=== PATIENT | male | born 1965 ===

== ENCOUNTER → 2024-07-26 17:26 | Outpatient (REF) | payer OTHER, SELFPAY | LOC: MRI 3T 17:26 | PROVIDERS: ATTENDING PHYSICIAN Specialist; FAMILY PHYSICIAN Family Medicine | DX: C61 Malignant neoplasm of prostate (principal) | CPT/HCPCS: 72197; A9575 ==

== ENCOUNTER 2024-08-23 07:01 | Outpatient (RCR) | payer OTHER, SELFPAY | END 2024-08-23 23:59 | disposition home or self-care (01) | LOC: RPT 07:01 | PROVIDERS: ATTENDING PHYSICIAN Specialist; FAMILY PHYSICIAN Family Medicine | DX: C61 Malignant neoplasm of prostate (principal); Z73.6 Limitation of activities due to disability; Z85.038 Personal history of other malignant neoplasm of large intestine; Z98.0 Intestinal bypass and anastomosis status | CPT/HCPCS: 97112; 97162; 97530 ==

== ENCOUNTER 2024-08-28 10:25 | Inpatient (IN) | payer OTHER, SELFPAY ==
[2024-08-21 08:57] LABS: Hematocrit 40.2 % (39.0-52.0); Hemoglobin 14.1 g/dL (13.0-18.0); Mean Corp Hgb Conc. 35.1 g/dL (33.0-37.0); Mean Corpuscular Hgb 30.7 pg (27.0-31.0); Mean Corpuscular Volume 87.4 fL (80.0-94.0); Mean Platelet Volume 9.4 fL (7.4-10.4); Platelet Count 318 10^3/uL (130-400); Red Cell Dist. Width 12.8 % (11.5-14.5); White Blood Cell Count 7.5 10^3/uL (4.8-10.8)
[2024-08-21 09:58] LABS: Blood Urea Nitrogen 25 mg/dl (9-20); Calcium 9.5 mg/dl (8.4-10.2); Carbon Dioxide 28 mmol/L (22-30); Chloride 106 mmol/L (98-107); Glucose 90 mg/dl (70-99); Potassium 4.8 mmol/L (3.5-5.1); Sodium 142 mmol/L (135-145); eGFR > 60.00
[2024-08-21 13:54] VITALS: BMI 32.7
[2024-08-28] VITALS (16 sets, daily range): BP systolic 119–158; BP diastolic 71–87; BMI 32.7
[2024-08-28] MEDS: NEBCIN 480 MG/100 ML ENEMA 1 BOTTLE RECTAL (08:48)
[2024-08-28] MEDS: NORMOSOL-R/PLASMALYTE-A 1000 IV ×2 (08:49→16:43)
--- NOTE | 2024-08-28 12:31 | W.IMMPOSTOP ---
Surgical Immed Post Op Note
-
Primary Surgeon: Sofia
Assisting Surgeon: Roberthner
Pre-op Diagnosis: Prostate cancer
Post-op Diagnosis: Same
Procedure Performed: Radical perineal prostatectomy, bladder neck reconstuction
Anesthesia Type: GET
Specimen / Cultures: prostate, perivesical soft tissue, bladder neck and urethral margins
Estimated Blood Loss: 100 ml
Complications: Rectal laceration: recognized and repaired
[2024-08-28] MEDS: TORADOL 15 MG IV ×2 (13:23→18:17)
[2024-08-28 13:27] LABS: Hematocrit 39.6 % (39.0-52.0); Hemoglobin 14.2 g/dL (13.0-18.0)
[2024-08-28] MEDS: DETROL LA 4 MG PO (13:28)
[2024-08-28 13:40] LABS: Blood Urea Nitrogen 15 mg/dl (9-20); Calcium 8.8 mg/dl (8.4-10.2); Carbon Dioxide 27 mmol/L (22-30); Chloride 107 mmol/L (98-107); Estimated Creatinine Clearance 107 ml/min; Glucose 163 mg/dl (70-99); Potassium 4.6 mmol/L (3.5-5.1); Sodium 140 mmol/L (135-145); eGFR > 60.00
[2024-08-28] MEDS: VALIUM INJECTION 5 MG IV ×2 (13:51→20:13)
[2024-08-28] MEDS: FLAGYL 500 MG 100 IV (15:07)
[2024-08-28] MEDS: DILAUDID 0.25 MG IV (15:16)
[2024-08-28] MEDS: ZESTRIL 20 MG PO (17:58)
[2024-08-28] MEDS: COLACE 100 MG PO (17:58)
--- NOTE | 2024-08-28 18:06 | PTCARENOTE ---
Pt arrived to [facility] s/p radical prostatectomy. Pt has aburto catheter with yellow output and IVF infusing. Dressing on perineum with scant sanguineous drainage and rahul drain. Admission questions answered. Pt oriented to room and call caraballo. Bed
locked and in lowest position. Care ongoing.
[2024-08-28] MEDS: POLYSPORIN/DOUBLE ANTIBIOTIC 1 APPLIC TOPICAL (20:12)
[2024-08-28] MEDS: XANAX 0.25 MG PO (23:25)
[2024-08-28] MEDS: TYLENOL 650 MG PO (23:25)
[2024-08-29] MEDS: NORMOSOL-R/PLASMALYTE-A 1000 IV ×2 (02:00→13:14)
[2024-08-29] MEDS: FLAGYL 500 MG 100 IV ×2 (02:20→13:14)
[2024-08-29] MEDS: TORADOL 15 MG IV ×4 (02:20→18:32)
[2024-08-29 03:05] VITALS: BP 133/64
[2024-08-29 07:12] LABS: Hematocrit 35.8 % (39.0-52.0); Hemoglobin 12.7 g/dL (13.0-18.0); Mean Corp Hgb Conc. 35.5 g/dL (33.0-37.0); Mean Corpuscular Hgb 30.8 pg (27.0-31.0); Mean Corpuscular Volume 86.7 fL (80.0-94.0); Mean Platelet Volume 9.1 fL (7.4-10.4); Platelet Count 283 10^3/uL (130-400); Red Blood Cell Count 4.13 10^6/uL (4.70-6.10); Red Cell Dist. Width 12.8 % (11.5-14.5); White Blood Cell Count 12.3 10^3/uL (4.8-10.8)
[2024-08-29 07:20] VITALS: BP 140/78
[2024-08-29] MEDS: PROTONIX 40 MG PO (07:28)
[2024-08-29] MEDS: POLYSPORIN/DOUBLE ANTIBIOTIC 1 APPLIC TOPICAL ×2 (07:28→22:13)
[2024-08-29] MEDS: ZESTRIL 20 MG PO (07:28)
[2024-08-29] MEDS: COLACE 100 MG PO ×3 (07:28→15:54)
[2024-08-29] MEDS: MAG-TAB SR 84 MG PO (07:28)
[2024-08-29 07:42] LABS: Blood Urea Nitrogen 13 mg/dl (9-20); Calcium 8.7 mg/dl (8.4-10.2); Carbon Dioxide 28 mmol/L (22-30); Chloride 110 mmol/L (98-107); Estimated Creatinine Clearance 107 ml/min; Glucose 108 mg/dl (70-99); Potassium 4.2 mmol/L (3.5-5.1); Sodium 142 mmol/L (135-145); eGFR > 60.00
[2024-08-29] MEDS: VALIUM INJECTION 5 MG IV (07:43)
--- NOTE | 2024-08-29 08:55 | W.PN.SURGUPD ---
Addendum entered and electronically signed by Russell Black MD 08/30/24 15:34:
Hgb drop is not c/w acute blood loss anemia and likely represents hemodilution effect
Original Note:
Surgical Update
Surgical Update
Stable 1 day s/p radical perineal prostatectomy
Afeb
VSS
Labs good
Urine clear
Dressing intact: clean other than expected drainage
Tolerating clears; flatus
---
Cap IV fluids
Increase activity
Advance to full liquids
--- NOTE | 2024-08-29 09:10 | CM ---
Addendum entered by Anne Marie Cerna RN 08/29/24 09:59:
[facility] has accepted.
Original Note:
Cm reviewed medical records. Patient lives independently. Patient does not have a history of VN, SNF or DME. Patient is active with his PCP. Patient confirmed medication coverage and uses [facility] for medication services.
CM is agreeable to home care. CM sent referral via [facility] to [facility]. CM is awaiting acceptance.
PLAN: Home with VN, pending [facility] acceptance.
[2024-08-29 11:39] VITALS: BP 142/76
[2024-08-29] MEDS: PERCOCET 5/325 1 TABLET PO ×2 (14:27→23:11)
[2024-08-29 15:40] VITALS: BP 133/72
[2024-08-29] MEDS: DETROL LA 4 MG PO (20:03)
[2024-08-29] MEDS: XANAX 0.25 MG PO (22:25)
[2024-08-29 23:00] VITALS: BP 134/59
[2024-08-30] MEDS: NORMOSOL-R/PLASMALYTE-A 1000 IV (00:41)
[2024-08-30] MEDS: FLAGYL 500 MG 100 IV (01:13)
[2024-08-30] MEDS: ATIVAN 1 MG IV (01:51)
[2024-08-30] MEDS: NSS (PRESERVATIVE FREE) 0.5 ML IV (01:51)
[2024-08-30] MEDS: TYLENOL 650 MG PO (01:52)
[2024-08-30 06:12] LABS: % Basophils 0.6 % (0-2); % Eosinophils 1.1 % (0-6); % Immature Granulocytes 0.4 % (0-0.5); % Lymphocytes 27.2 % (20.5-51.1); % Monocytes 7.1 % (1.7-9.3); % Neutrophils 63.6 % (42.2-75.2); Absolute Basophils 0.1 10^3/uL (0-0.2); Absolute Eosinophils 0.1 10^3/uL (0-0.7); Absolute Lymphocytes 2.6 10^3/uL (1.2-3.4); Absolute Monocytes 0.7 10^3/uL (0.1-0.6); Absolute Neutrophils 6.1 10^3/uL (1.4-6.5); Hematocrit 32.6 % (39.0-52.0); Hemoglobin 11.3 g/dL (13.0-18.0); Mean Corp Hgb Conc. 34.7 g/dL (33.0-37.0); Mean Corpuscular Hgb 30.1 pg (27.0-31.0); Mean Corpuscular Volume 86.9 fL (80.0-94.0); Mean Platelet Volume 9.3 fL (7.4-10.4); Nucleated Red Blood Cells % 0 % (-); Platelet Count 230 10^3/uL (130-400); Red Blood Cell Count 3.75 10^6/uL (4.70-6.10); Red Cell Dist. Width 12.6 % (11.5-14.5); White Blood Cell Count 9.6 10^3/uL (4.8-10.8)
[2024-08-30 08:19] VITALS: BP 150/66
[2024-08-30] MEDS: ZESTRIL 20 MG PO (09:32)
[2024-08-30] MEDS: PROTONIX 40 MG PO (09:32)
[2024-08-30] MEDS: COLACE 100 MG PO ×2 (09:32→12:22)
[2024-08-30] MEDS: POLYSPORIN/DOUBLE ANTIBIOTIC 1 APPLIC TOPICAL (09:32)
[2024-08-30] MEDS: MAG-TAB SR 84 MG PO (09:32)
--- NOTE | 2024-08-30 10:12 | PN.CDI ---
CDI
- -
CDI:
Physician Documentation Request
Admit Date: 08/28/24 10:25
Dear Doctor,
Please review the following and provide your response in the progress notes.
Clinical Indicators:
Pt admitted with Prostate cancer s/p radical perineal prostatectomy 08/28
Trended Hemoglobin /Hematocrits below /ESBL 100 ml
08/28/24
13:18
Hgb 14.2
Hct 39.6
08/29/24 08/30/24
06:54 05:43
Hgb 12.7 L 11.3 L
Hct 35.8 L 32.6 L
Please provide a diagnosis for the above findings:
Acute blood loss anemia
Abnormal lab value
Other ( please specify)
Use of terms such as suspected, likely, concern for, or probable (associated with a specific diagnosis that is being evaluated, monitored, or treated as if it exists) are acceptable and can be coded in the inpatient setting, when documented at the
time of discharge.
Thank you,
Oliva Jean-Baptiste RN
CDI Specialist
[place] [facility]
Please use your independent medical judgment in providing your response.
--- NOTE | 2024-08-30 10:35 | CM ---
Addendum entered by Anne Marie Cerna RN 08/30/24 10:42:
[facility]

Addendum entered by Anne Marie Cerna RN 08/30/24 10:39:
CM updated patient with agency. Patient is looking forward to discharge to home.
Original Note:
Patient ready for discharge to home with [facility]. Cm updated [facility] with plan for discharge today.
Plan: Home with [facility].
[2024-08-30 13:37] VITALS: BP 135/60
[2024-08-30 18:36] LABS: Hepatitis C Antibody Negative (Negative)
--- NOTE | 2024-08-31 12:58 | W.DCSUMMARY ---
Discharge Summary
Discharge Data
Date of Admission: 08/28/24
Date of Discharge: 08/30/24
Total time spent discharging patient (in min): 25
-
Pending Results: Yes
Additional Pending Results:
PATH REPORT
Hospital Course
THE PT HAD PROSTATE CANCER IT WAS REMOVED WITH RADICAL PERINEAL PROSTATECTOMY HE REMAINED STABLE HOME ON CEFDINIR 08/30 WILL CALL FOR PATH OR PROBLEMS
Discharge Plan
-
Patient Disposition: Home with Home Care
Discharge Diagnosis/Procedures: Prostate cancer
Condition: Good
Diet: Low Residue
Activity: No strenuous activity
Additional Activity: for 1 week
Driving Restrictions: No driving for 1 week
Bathing Restrictions: Shower off after each BM the next 5 days
Other Services: VN
Wound Care: VN to remove Bueno catheter around 930 am TuesdaySeptember 10
Referrals:
Judd Espinal MD [Family Provider] -
Russell Black MD [Active] - (Call now to schedule an appointment with Dr. Black' nurse to check voiding around 3pm September 10)
Additional Discharge Medication Instructions: Cefdinir 300mg twice daily by mouth x 1 week (sent to pharmacy)
Prescriptions:
Continued
lisinopril 20 MG tablet
20 mg PO .IN THE AM
alprazolam 0.25 mg Tablet
0.25 mg PO HS PRN (Reason: anxiety)
tadalafil 5 mg Tablet
5 mg PO DAILY
omeprazole 20 mg Tablet,Delayed Release (Dr/Ec)
20 mg PO DAILY
ascorbic acid (vitamin C) [Vitamin C] 1,000 mg Tablet
1,000 mg PO DAILY
vitamin B complex Tablet
1 tab PO DAILY
magnesium glycinate 118 mg magnesium Capsule
360 mg PO DAILY
Vitamin K2 D3
1 dose PO DAILY
vitamin E 670 mg (1,000 unit) Capsule
670 mg PO DAILY
selenium 200 mcg Tablet
200 mcg PO DAILY
coenzyme Q10 [CoQ-10] 100 mg Capsule
200 mg PO DAILY
omega [id number]-yfl-fish oil [Fish Oil] 1,200 (144-216) mg Capsule
2 cap PO DAILY
Discharge Orders:
Discharge Patient (As Directed); Ordered 08/30/24
Ordered By: Christiano Santos
Discharge Date and Time
Discharge Date/Time: 08/30/24 13:59
Print Language: LITHUANIAN
--- NOTE | 2024-08-31 15:49 | W.PN.URO.CBU ---
Today's Communication / Plan
-
home
Assessment / Plan
-
remove drain d/c to home
Diagnosis
-
Date of Service: August 31, 2024
-
Patient Diagnosis:acp
Post Op Day: 3
Subjective
-
stable
Objective
-
Vital Signs
Temp Pulse Resp BP Pulse Ox
98.0 F 78 16 135/60 98
08/30/24 13:37 08/30/24 13:37 08/30/24 13:37 08/30/24 13:37 08/30/24 13:37
Intake and Output
08/30/24 08/31/24 09/01/24
06:59 06:59 06:59
Intake Total 4020 / 4020 480 / 480
Output Total 3400 / 3400 2300 / 2300
Balance 620 / 620 -1820 / -1820
Intake:
Oral fluids 1520 / 1520 480 / 480
IV fluids (Total) 2300 / 2300
IV piggybacks 200 / 200
Output:
Urine, Bueno 3400 / 3400 2300 / 2300
Laboratory Results
08/30/24 05:43
08/29/24 06:54
Review of Systems
-
: Difficulty Voiding
Physical Exam
-
General - well developed, well nourished, no acute distress
Chest - clear bilaterally
Abdomen - soft, non-tender, positive bowel sounds, no CVAT, no incisional pain or distention
Genitalia - normal
Rectal - normal
Skin - warm & dry with no rash
Neuro - AOx3, no motor deficits
Extremities - no clubbing, no cyanosis, no edema
Incision - clean, dry
Dressing - clean, dry, intact
Care Review
Data Reviewed
Discussed with: Nursing and Family
== END 2024-08-30 13:59 | disposition home health service (06) | DRG 707 ==
LOC: 2 SOUTH 10:25
PROVIDERS: ADMITTING PHYSICIAN Specialist; FAMILY PHYSICIAN Family Medicine
PROC: 0TQ Urinary System, Repair (ICD-10-PCS; 2024-08-28)
PROC: 0VT00ZZ Resection of Prostate, Open Approach (ICD-10-PCS; 2024-08-28)
PROC: 0DQP0ZZ Repair Rectum, Open Approach (ICD-10-PCS; 2024-08-28)
PROC: 0TBD0ZX Excision of Urethra, Open Approach, Diagnostic (ICD-10-PCS; 2024-08-28)
DX: C61 Malignant neoplasm of prostate (principal); K91.72 Accidental puncture and laceration of a digestive system organ or structure during other procedure; Y65.8 Other specified misadventures during surgical and medical care; Y92.234 Operating room of hospital as the place of occurrence of the external cause; N52.9 Male erectile dysfunction, unspecified; I10 Essential (primary) hypertension; E78.5 Hyperlipidemia, unspecified; G47.30 Sleep apnea, unspecified; D64.9 Anemia, unspecified; R73.9 Hyperglycemia, unspecified; K21.9 Gastro-esophageal reflux disease without esophagitis; Z88.6 Allergy status to analgesic agent; Z88.5 Allergy status to narcotic agent; Z91.048 Other nonmedicinal substance allergy status; Z80.42 Family history of malignant neoplasm of prostate; Z85.038 Personal history of other malignant neoplasm of large intestine; Z86.16 Personal history of COVID-19
CPT/HCPCS: 88304; 88305; 88309; 88332; 36415; 80048; 85014; 85018; 85025; 85027; 86803; 86850; 86900; 86901; 88331; 93005; A4648

== ENCOUNTER 2024-10-09 10:15 | Outpatient (RCR) | payer OTHER, SELFPAY | END 2024-10-09 23:59 | disposition home or self-care (01) | LOC: RPT 10:15 | PROVIDERS: ATTENDING PHYSICIAN Specialist; FAMILY PHYSICIAN Family Medicine | DX: C61 Malignant neoplasm of prostate (principal); Z73.6 Limitation of activities due to disability; Z85.038 Personal history of other malignant neoplasm of large intestine; Z98.0 Intestinal bypass and anastomosis status | CPT/HCPCS: 97110; 97112; 97164; 97530 ==